=== PATIENT | female | born 1945 | race Caucasian/White ===

== ENCOUNTER → 2020-08-26 09:49 | Outpatient (BNVA) | payer MEDICARE, SELFPAY | PROVIDERS: Visit Provider Internal Medicine | DX: A31.9 Mycobacterial infection, unspecified (principal) | CPT/HCPCS: 99202 ==

== ENCOUNTER → 2020-11-07 12:48 | Outpatient (BNVA) | payer MEDICARE, SELFPAY | PROVIDERS: Visit Provider Internal Medicine | DX: A31.9 Mycobacterial infection, unspecified (principal) | CPT/HCPCS: 99212 ==

== ENCOUNTER → 2021-02-07 13:12 | Outpatient (BNVA) | payer MEDICARE, BC, SELFPAY | PROVIDERS: Visit Provider Internal Medicine | DX: A31.9 Mycobacterial infection, unspecified (principal) | CPT/HCPCS: 99212 ==

== ENCOUNTER → 2021-05-09 11:19 | Outpatient (BNVA) | payer MEDICARE, BC, SELFPAY | PROVIDERS: Visit Provider Internal Medicine | DX: A31.9 Mycobacterial infection, unspecified (principal) | CPT/HCPCS: 99212 ==